=== PATIENT | female | born 1975 | race Caucasian/White ===

== ENCOUNTER 2016-08-22 12:44 | Day surgery (SDC) | payer MEDICARE, MEDICAID ==
[~2016-08-22 12:44] MED LIST: ABILIFY5 M1 PO; ADOXA50 MG; ADOXA50 MG PO; ADVIL200 M1 PO; ALAVERT10 MG PO; AMOXICILLIN875 MG PO; AMOXIL500 MG PO; ASACOL400 MG; ASACOL400 MG PO; AUGMENTIN875 MG PO; CALCIUM WITH V1 EAC2 PO; CETIRIZINE HCL10 MG PO; CHLORASEPTIC T180 ML MM; CLOTRIMAZOLE10 MG PO; CPAP; CYCLOBENZAPRINE10 M1 PO; CYMBALTA30 MG PO; DEPO; DEPO PROVERA; DEPO-PROVERA SC; DESYREL150 MG PO; DESYREL300 MG PO; DETROL LA4 MG; DETROL LA4 MG PO; DOXYCYCLINE HYC50 MG PO; EFFEXOR XR150 M1 PO; EXPECTORANT PO; FISH OIL 11000 MG/CA PO; GUAIFENESIN200 MG; HUMIRA40 MG/0.3 SC; HYDROXYZINE HCL25 M1 PO; IBUPROFEN800 MG PO; IMITREX50 M2 PO; INDERAL PO; INDERAL60 MG; INDERAL60 MG PO; KLONOPIN0.5 MG; KLONOPIN0.5 MG PO; KLONOPIN1 M1 PO; LEVOXYL50 MCG; LEXAPRO10 MG; LEXAPRO20 MG PO; LOVAZA; LOVAZA1 GM PO; LYRICA100 MG; LYRICA150 MG/CAP PO; MAXALT10 MG PO; MEPERIDINE HCL50 M1 PO; MEPERITAB50 MG; METHOCARBAMOL750 MG; METHOCARBAMOL750 MG PO; METRONIDAZOLE45 GM; METRONIDAZOLE45 GM TP; MILK OF MAGNES311 MG PO; MOTRIN100 MG/5 M PO; MUCINEX600 MG PO; MULTIVITAMIN1 CAP PO; MULTIVITAMIN1 TAB; NEXIUM40 M1 PO; NORFLEX PO; NORFLEX100 MG PO; OCEAN45 ML; OCEAN45 ML NS; OMACOR1 G PO; OS CAL; OXYBUTYNIN CHLOR5 M2 PO; PEN-VEE K500 MG PO; PRILOSEC OTC20 MG; PROAIR HFA8.5 GM INH; RESTORIL15 M1 PO; RHINOCORT AQUA8.6 GM NS; ROZEREM8 MG; SYNTHROID50 MC1 PO; TOPAMAX50 M3 PO; TOPAMAX50 MG; TYLENOL325 MG PO; VENTOLIN HFA8 GM IH; VITAMIN D50000 UNI2 PO; VITAMIN D50000 UNIT; WELLBUTRIN SR150 MG; WELLBUTRIN SR150 MG PO; ZYRTEC-D T1 TAB.SR .; [UNRECOGNIZED DRUG - CODE] PO; [UNRECOGNIZED DRUG - OTHER]; [UNRECOGNIZED DRUG - OTHER] PO; [UNRECOGNIZED DRUG - OTHER] PO
[2016-08-22 13:42] LABS: ANION GAP 19 mmol/L (0-20); BLOOD UREA NITROGEN 8 mg/dl (6-24); CALCIUM 9.4 mg/dl (8.5-10.5); CARBON DIOXIDE-VENOUS 18 mmol/L (22-32); CHLORIDE 108 mmol/l (96-110); CREATININE 1.01 mg/dl (0.50-1.10); GLUCOSE 101 mg/dL (70-110); SODIUM 141 mmol/L (135-145); eGFR VALUE FOR BLACK 80 mL/Min
[2016-08-22 13:45] LABS: POTASSIUM 3.7 mmol/L (3.7-5.1)
== END 2016-08-22 16:05 ==
LOC: ENDOS 12:44 → SHSA 12:45 → ENDOS 14:35
PROVIDERS: Anesthesiology
PROC: 0DBF8ZX Excision of Right Large Intestine, Via Natural or Artificial Opening Endoscopic, Diagnostic (ICD-10-PCS; principal; 2016-08-22)
PROC: 0DBG8ZX Excision of Left Large Intestine, Via Natural or Artificial Opening Endoscopic, Diagnostic (ICD-10-PCS; 2016-08-22)
PROC: 0DB88ZX Excision of Small Intestine, Via Natural or Artificial Opening Endoscopic, Diagnostic (ICD-10-PCS; 2016-08-22)
DX: K64.8 Other hemorrhoids (principal); K57.30 Diverticulosis of large intestine without perforation or abscess without bleeding; K21.9 Gastro-esophageal reflux disease without esophagitis; E66.01 Morbid (severe) obesity due to excess calories; E03.9 Hypothyroidism, unspecified; F41.9 Anxiety disorder, unspecified; F32.9 Major depressive disorder, single episode, unspecified; Z88.8 Allergy status to other drugs, medicaments and biological substances; Z88.6 Allergy status to analgesic agent; Z79.899 Other long term (current) drug therapy; Z98.890 Other specified postprocedural states; Z90.49 Acquired absence of other specified parts of digestive tract